=== PATIENT | female | born 1965 | race Two or more races ===

== ENCOUNTER 2023-04-08 05:55 | Day surgery (SDC) | payer OTHER ==
[~2023-04-08] VITALS: Ht 160 cm; Wt 72.6 kg
[~2023-04-08 05:55] MED LIST: ACTOS15 MG PO; CLONAZEPAM0.125 MG PO; COZAAR25 MG PO; FARXIGA10 MG PO
== END 2023-04-08 16:45 | disposition home or self-care (01) ==
LOC: CIR.AMB 05:55
PROVIDERS: ATTEND Surgery
DX: C50.212 Malignant neoplasm of upper-inner quadrant of left female breast (principal); C77.3 Secondary and unspecified malignant neoplasm of axilla and upper limb lymph nodes; Z20.822 Contact with and (suspected) exposure to COVID-19; I10 Essential (primary) hypertension
CPT/HCPCS: 19301; 38525; 19281; A9541; L8699